=== PATIENT | male | born 1985 | race Caucasian/White ===

== ENCOUNTER 2016-11-02 22:10 | Inpatient (IN) | payer MEDICAID ==
[~2016-11-02] VITALS: Ht 165.1 cm; Wt 60.6 kg
[2016-11-03] MEDS ORDERED: INFLUENZA VIRUS VACCINE QVS 2016-17 (3YR+)/PF 60 MCG/0.5 ML SYRINGE IM ONE (00:15)
[2016-11-03 00:43] VITALS: BP 134/72
[2016-11-03 08:15] VITALS: BP 113/67
[2016-11-03 08:38] LABS: BASOPHILS # (AUTO) 0.07 K/uL (0.00-0.20); BASOPHILS % (AUTO) 0.4 % (0.0-2.0); EOSINOPHILS # (AUTO) 0.61 K/uL (0.00-0.70); EOSINOPHILS % (AUTO) 3.47 % (1.0-6.0); HEMATOCRIT 42.6 % (41-53); LYMPHOCYTES # (AUTO) 1.7 K/uL (1.0-4.8); LYMPHOCYTES % (AUTO) 9.7 % (22.0-44.0); MEAN CORPUSCULAR HEMOGLOBIN 29.8 pg (26.0-34.0); MEAN CORPUSCULAR HGB CONC 32.8 G/dL (31.0-37.0); MEAN CORPUSCULAR VOLUME 91 fL (80-100); MONOCYTES # (AUTO) 0.9 K/uL (0.1-1.0); MONOCYTES % (AUTO) 5.1 % (2.0-9.0); NEUTROPHILS # (AUTO) 14.4 K/uL (1.8-7.7); NEUTROPHILS % (AUTO) 81.3 % (40.0-70.0); PLATELET COUNT (AUTO) 466 K/uL (150-450); RED BLOOD CELL COUNT(AUTO) 4.69 MIL/uL (4.50-5.90); RED CELL DISTRIBUTION WIDTH 14.7 % (11.5-14.5); WHITE BLOOD COUNT (AUTO) 17.7 K/uL (4.5-11.0)
[2016-11-03 09:23] LABS: HEMOGLOBIN A1C 5.2 % (4.5-6.2)
[2016-11-03 09:34] LABS: ALANINE AMINOTRANSFERASE 27 U/L (12-78); ALBUMIN 3.6 g/dL (3.4-5.0); ANION GAP 13 mmol/L (8-16); ASPARTATE AMINOTRANSFERASE 18 U/L (15-37); BILIRUBIN,TOTAL 0.2 mg/dL (0.1-1.0); CALCIUM, TOTAL 9.1 mg/dL (8.8-10.5); CARBON DIOXIDE 23 mmol/L (22-29); CHLORIDE 102 mmol/L (98-107); CHOL/HDL RATIO 2.7 (4.2-7.3); CREATININE 0.76 mg/dL (0.60-1.30); GLOMERULAR FILTR. RATE CALC > 60 mL/min (>60); POTASSIUM 4.1 mmol/L (3.5-5.1); SODIUM SERUM 138 mmol/L (136-145); THYROID STIMULATING HORMONE 0.85 uIU/mL (0.36-3.74); TOTAL PROTEIN, SERUM 7.1 g/dL (6.4-8.2); UREA NITROGEN, BLOOD 16 mg/dL (7-18)
[2016-11-03 16:00] VITALS: BP 108/67
[2016-11-03] MEDS: ZOLPIDEM TARTRATE 10 MG TABLET PO PRN (21:13)
[2016-11-04 00:29] VITALS: BP 102/61
[2016-11-04 08:08] LABS: BASOPHILS % (AUTO) 0.6 % (0.0-2.0); EOSINOPHILS % (AUTO) 4.4 % (1.0-6.0); HEMATOCRIT 42.5 % (41-53); HEMOGLOBIN 13.7 g/dL (13.5-17.5); LYMPHOCYTES # (AUTO) 2.6 K/uL (1.0-4.8); LYMPHOCYTES % (AUTO) 21.6 % (22.0-44.0); MEAN CORPUSCULAR HEMOGLOBIN 29.5 pg (26.0-34.0); MEAN CORPUSCULAR HGB CONC 32.3 G/dL (31.0-37.0); MEAN CORPUSCULAR VOLUME 92 fL (80-100); MONOCYTES % (AUTO) 8.4 % (2.0-9.0); NEUTROPHILS # (AUTO) 7.8 K/uL (1.8-7.7); PLATELET COUNT (AUTO) 399 K/uL (150-450); RED BLOOD CELL COUNT(AUTO) 4.65 MIL/uL (4.50-5.90); RED CELL DISTRIBUTION WIDTH 14.9 % (11.5-14.5); WHITE BLOOD COUNT (AUTO) 12.1 K/uL (4.5-11.0)
[2016-11-04 08:41] VITALS: BP 102/67
[2016-11-04] MEDS: DULoxetine HCL 30 MG CAPSULE PO SCH (10:52)
[2016-11-04 16:28] VITALS: BP 120/75
[2016-11-05 01:31] VITALS: BP 101/60
[2016-11-05 09:06] VITALS: BP 101/60
[2016-11-05] MEDS: DULoxetine HCL 30 MG CAPSULE PO SCH (09:30)
[2016-11-05] MEDS: LORazepam 2 MG TABLET PO PRN (13:59)
[2016-11-05 16:21] VITALS: BP 103/62
[2016-11-05] MEDS: ZOLPIDEM TARTRATE 10 MG TABLET PO PRN (20:42)
[2016-11-06 00:13] VITALS: BP 104/62
[2016-11-06] MEDS: DULoxetine HCL 30 MG CAPSULE PO SCH (08:33)
[2016-11-06] MEDS: LORazepam 2 MG TABLET PO PRN ×3 (08:33→18:54)
[2016-11-06 09:03] VITALS: BP 112/66
[2016-11-06 16:15] VITALS: BP 110/62
[2016-11-06] MEDS: TraZODone HCL 50 MG TABLET PO SCH (20:44)
[2016-11-07 01:03] VITALS: BP 101/61
[2016-11-07] MEDS: ZOLPIDEM TARTRATE 10 MG TABLET PO PRN (03:02)
[2016-11-07 08:39] VITALS: BP 105/61
[2016-11-07] MEDS: LORazepam 2 MG TABLET PO PRN ×3 (08:39→17:17)
[2016-11-07] MEDS: DULoxetine HCL 30 MG CAPSULE PO SCH (08:39)
[2016-11-07] MEDS ORDERED: IBUPROFEN 600 MG TABLET PO PRN (15:45)
[2016-11-07 16:06] VITALS: BP_SYST 114; BP_SYST 123; BP_DIAS 74; BP_DIAS 86
[2016-11-07] MEDS: ACETAMINOPHEN 325 MG TABLET PO PRN (16:09)
[2016-11-07] MEDS: TraZODone HCL 50 MG TABLET PO SCH (20:15)
[2016-11-08 00:13] VITALS: BP 108/65
[2016-11-08] MEDS: DULoxetine HCL 30 MG CAPSULE PO SCH (08:46)
[2016-11-08 09:01] VITALS: BP 108/62
[2016-11-08] MEDS: LORazepam 2 MG TABLET PO PRN ×2 (09:33→14:28)
[2016-11-08] MEDS ORDERED: DULO30CA2 PO (14:24)
[2016-11-08] MEDS ORDERED: TRAZ-144 PO (14:24)
[2016-11-08] MEDS: ACETAMINOPHEN 325 MG TABLET PO PRN (16:21)
[2016-11-08 16:33] VITALS: BP 118/79
== END 2016-11-08 17:15 | disposition home or self-care (01) | DRG 885 ==
LOC: EDSTATUS 23:30 → B2S 23:50
PROVIDERS: ADMIT Psychiatry & Neurology Child & Adolescent Psychiatry; ATTEND Psychiatry & Neurology Child & Adolescent Psychiatry
DX: F33.2 Major depressive disorder, recurrent severe without psychotic features (principal); R45.851 Suicidal ideations; F19.10 Other psychoactive substance abuse, uncomplicated; F15.90 Other stimulant use, unspecified, uncomplicated; F12.90 Cannabis use, unspecified, uncomplicated; D72.829 Elevated white blood cell count, unspecified
CPT/HCPCS: 83036; 84439; 84443

== ENCOUNTER 2016-11-18 14:23 | Emergency (ER) | payer MEDICAID ==
[~2016-11-18] VITALS: Ht 154.9 cm; Wt 66.8 kg
[~2016-11-18 14:23] MED LIST: DULO30CA2 PO; TRAZ-144 PO
[2016-11-18] MEDS ORDERED: CITA20TA9 PO (14:47)
[2016-11-18] MEDS ORDERED: OLAN10TA3 PO (14:47)
[2016-11-18] MEDS ORDERED: PHEN-460 PO (14:55)
[2016-11-18 15:01] LABS: BASOPHILS % (AUTO) 0.6 % (0.0-2.0); EOSINOPHILS % (AUTO) 0.9 % (1.0-6.0); HEMATOCRIT 37.2 % (41-53); HEMOGLOBIN 12.2 g/dL (13.5-17.5); LYMPHOCYTES # (AUTO) 2.1 K/uL (1.0-4.8); LYMPHOCYTES % (AUTO) 11.7 % (22.0-44.0); MEAN CORPUSCULAR HEMOGLOBIN 29.6 pg (26.0-34.0); MEAN CORPUSCULAR HGB CONC 32.7 G/dL (31.0-37.0); MEAN CORPUSCULAR VOLUME 91 fL (80-100); MONOCYTES # (AUTO) 0.8 K/uL (0.1-1.0); MONOCYTES % (AUTO) 4.6 % (2.0-9.0); NEUTROPHILS # (AUTO) 15.1 K/uL (1.8-7.7); NEUTROPHILS % (AUTO) 82.2 % (40.0-70.0); PLATELET COUNT (AUTO) 340 K/uL (150-450); RED BLOOD CELL COUNT(AUTO) 4.11 MIL/uL (4.50-5.90); RED CELL DISTRIBUTION WIDTH 14.7 % (11.5-14.5); WHITE BLOOD COUNT (AUTO) 18.3 K/uL (4.5-11.0)
[2016-11-18 15:05] LABS: ANION GAP 9 mmol/L (8-16); CALCIUM, TOTAL 8.6 mg/dL (8.8-10.5); CARBON DIOXIDE 29 mmol/L (22-29); CHLORIDE 105 mmol/L (98-107); CREATININE 0.74 mg/dL (0.60-1.30); GLOMERULAR FILTR. RATE CALC > 60 mL/min (>60); POTASSIUM 3.3 mmol/L (3.5-5.1); SODIUM SERUM 143 mmol/L (136-145); UREA NITROGEN, BLOOD 5 mg/dL (7-18)
[2016-11-18 15:11] LABS: ALANINE AMINOTRANSFERASE 19 U/L (12-78); ALBUMIN 3.4 g/dL (3.4-5.0); ASPARTATE AMINOTRANSFERASE 12 U/L (15-37); BILIRUBIN,TOTAL 0.4 mg/dL (0.1-1.0); TOTAL PROTEIN, SERUM 6.7 g/dL (6.4-8.2)
[2016-11-18 18:14] LABS: APPEARANCE,URINE CLEAR (CLEAR); GLUCOSE, URINE (UA) NEGATIVE (NEGATIVE); KETONES,URINE NEGATIVE (NEGATIVE); LEUKOCYTE ESTERASE ,URINE SMALL (NEGATIVE); OCCULT BLOOD,URINE NEGATIVE (NEGATIVE); PROTEIN,URINE NEGATIVE (NEGATIVE)
[2016-11-18 18:30] LABS: ADD UA MICROSCOPIC YES
[2016-11-18 19:10] LABS: RBC,URINE 0-2 /HPF (0-2); SQUAMOUS EPITHELIAL CELL,UR Rare /LPF (None Seen)
[2016-11-18] MEDS ORDERED: CEPHALEXIN MONOHYDRATE 500 MG CAPSULE PO ONE (19:45)
[2016-11-18] MEDS ORDERED: PHENYTOIN SODIUM 100 MG ER CAPSULE PO ONE (19:45)
[2016-11-18 19:49] VITALS: BP 119/86
== END 2016-11-18 19:51 | disposition home or self-care (01) ==
LOC: EMS 14:24
DX: F20.9 Schizophrenia, unspecified (principal); N39.0 Urinary tract infection, site not specified; F17.210 Nicotine dependence, cigarettes, uncomplicated; Z79.899 Other long term (current) drug therapy
CPT/HCPCS: 36415; 80053; 80185; 80307; 81001; 85025; 87086; 99284; G0480